=== PATIENT | female | born 1990 | race Hispanic/Latino ===

== ENCOUNTER 2017-04-13 03:29 | Emergency (ER) | payer BC ==
[~2017-04-13] VITALS: Ht 162.6 cm; Wt 56.7 kg
[2017-04-13 05:07] LABS: BILIRUBIN,URINE NEGATIVE (NEGATIVE); COLOR,URINE YELLOW (YELLOW); KETONES,URINE NEGATIVE (NEGATIVE); LEUKOCYTE ESTERASE ,URINE NEGATIVE (NEGATIVE); NITRITE,URINE NEGATIVE (NEGATIVE); URINE UROBILINOGEN 0.2 mg/dL (0.2 - 1)
[2017-04-13 05:15] LABS: CLARITY,URINE HAZY (CLEAR); PROTEIN,URINE DIPSTICK 1+ (NEGATIVE)
[2017-04-13 05:18] LABS: BACTERIA,URINE MANY /HPF; EPITHELIAL CELLS,URINE FEW /LPF; RBC,URINE 0-5 /HPF (0-5); WBC,URINE (MAN) 0-5 /HPF (0-5)
[2017-04-13 05:19] LABS: MUCUS,URINE MODERATE (RARE)
[2017-04-13 06:00] VITALS: BP 129/72
== END 2017-04-13 06:22 | disposition home or self-care (01) ==
LOC: ER 03:29
DX: R10.84 Generalized abdominal pain (principal); K59.09 Other constipation; G43.909 Migraine, unspecified, not intractable, without status migrainosus
CPT/HCPCS: 81001; 81025; 87086; 99282